=== PATIENT | female | born 2000 ===

== ENCOUNTER 2023-05-11 04:15 | Day surgery (SDC) | payer OTHER ==
[2023-05-09 11:06] VITALS: BMI 22.3
[2023-05-11] MEDS ORDERED: MIDAZOLAM HCL 2 MG/2 ML SINGLE DOSE VIAL ONE (11:35)
[2023-05-11] MEDS ORDERED: ROCURONIUM BROMIDE 50 MG/5 ML SYRINGE ONE (11:37)
[2023-05-11] MEDS ORDERED: SUGAMMADEX SODIUM 200 MG/2 ML VIAL ONE (11:37)
[2023-05-11] MEDS ORDERED: PROPOFOL 40 ML ONE (11:37)
[2023-05-11] MEDS ORDERED: ceFAZolin SODIUM 1 GM VIAL IVPB ONE (11:48)
[2023-05-11] MEDS ORDERED: ONDANSETRON 4 MG/2 ML VIAL ONE ×3 (11:57→15:52)
[2023-05-11] MEDS ORDERED: DEXAMETHASONE SOD PHOSPHATE 4 MG/1 ML VIAL ONE (11:57)
[2023-05-11] MEDS ORDERED: ACETAMINOPHEN INJECTION 100 ML IVPB ONE (12:01)
[2023-05-11] MEDS ORDERED: ONDANSETRON 4 MG/2 ML VIAL IVPUSH PRN (12:48)
[2023-05-11] MEDS ORDERED: LACTATED RINGERS SOLUTION 1,000 ML IV SCH (13:00)
[2023-05-11] MEDS ORDERED: ONDANSETRON 4 MG/2 ML VIAL IVPUSH ONE (15:55)
[2023-05-11 16:09] VITALS: RESP 16
[2023-05-11] MEDS ORDERED: oxyCODONE HCL 5 MG TABLET ONE (16:22)
[2023-05-11] MEDS ORDERED: oxyCODONE HCL 5 MG TABLET PO ONE (16:40)
[2023-05-11 17:36] VITALS: BP 99/47; PULSE 46; TEMP 97.5
== END 2023-05-11 17:30 | disposition home or self-care (01) ==
LOC: JASU-SURG 04:15
PROVIDERS: ATTEND Otolaryngology
PROC: 0CBM8ZZ Excision of Pharynx, Via Natural or Artificial Opening Endoscopic (ICD-10-PCS; principal; 2023-05-11 11:30)
DX: J35.03 Chronic tonsillitis and adenoiditis (principal)
CPT/HCPCS: 81025; 94760